=== PATIENT | male | born 1990 | race Two or more races ===

== ENCOUNTER 2018-05-10 11:23 | Emergency (ER) | payer BC, OTHER ==
[~2018-05-10] VITALS: Ht 193 cm; Wt 181.4 kg
[2018-05-10 12:25] VITALS: BP 137/77
== END 2018-05-10 12:50 | disposition home or self-care (01) ==
LOC: ER 11:30
DX: F41.8 Other specified anxiety disorders (principal)
CPT/HCPCS: 93005

== ENCOUNTER → 2018-07-23 | Emergency (ER) | payer BC | END | disposition left against medical advice (07) | LOC: ER 21:09 | DX: R13.10 Dysphagia, unspecified (principal); Z53.21 Procedure and treatment not carried out due to patient leaving prior to being seen by health care provider ==

== ENCOUNTER 2023-07-23 08:34 | Emergency (ER) | payer BC, OTHER ==
[~2023-07-23] VITALS: Ht 190.5 cm; Wt 211.0 kg
[2023-07-23 09:15] LABS: Basophils # (auto) 0.1 10 ^3/uL (0-0.2); Basophils % (auto) 1.4 % (0.0-2.0); Eosinophils # (auto) 0.2 10 ^3/uL (0-0.8); Eosinophils % (auto) 2.9 % (0.0-7.0); Hematocrit 42.4 % (41.0-53.0); Hemoglobin 14.2 g/dL (13.5-17.5); Lymphocytes # (auto) 2.4 10 ^3/uL (0.4-5.4); Lymphocytes % (auto) 27.9 % (10.0-50.0); Mean Corpuscular Hemoglobin 29.5 pg (28.0-32.0); Mean Corpuscular Hgb Conc. 33.5 g/dL (32.0-36.0); Monocytes # (auto) 0.6 10 ^3/uL (0-1.3); Monocytes % (auto) 6.9 % (0.0-12.0); Neutrophils # (auto) 5.2 10 ^3/uL (1.6-8.6); Neutrophils % (auto) 60.9 % (37.0-80.0); Nucleated Red Blood Cells % 0.1 %; Red Blood Cells 4.81 10^6/uL (4.5-5.90); White Blood Cell 8.6 10^3/uL (4.4-10.8)
[2023-07-23 09:25] LABS: Urine Bacteria None Seen /hpf (None Seen)
[2023-07-23 09:37] LABS: Alanine Aminotransferase 142 U/L (7-40); Albumin 4.4 g/dL (3.2-4.8); Alkaline Phosphatase 68 U/L (46-116); Anion Gap 9 (5-15); Aspartate Aminotransferase 53 U/L (13-40); Blood Urea Nitrogen 9 mg/dL (9-23); Calcium 8.9 mg/dL (8.5-10.1); Carbon Dioxide 21 mmol/L (20-30); Chloride 108 mmol/L (98-107); Glucose 112 mg/dL (74-106); Potassium 3.7 mmol/L (3.5-5.1); Sodium 138 mmol/L (136-145)
[2023-07-23 09:38] LABS: Urine Blood Negative /uL (Negative); Urine Clarity Clear (Clear); Urine Color Light-Yellow (Yellow); Urine Protein, UAD Negative (Negative); Urine Specific Gravity 1.016 (1.001-1.035); Urine Urobilinogen Normal (Negative); Urine WBC <1 /hpf (0 - 3); Urine pH 5.5 (5.0-9.0)
[2023-07-23 09:38] LABS: Total Protein 7.2 g/dL (5.7-8.2)
[2023-07-23 10:10] LABS: Lipase 38 U/L (12-53)
[2023-07-23] MEDS: IOHEXOL 300 MG/ML 100ML BOTTLE IJ ONE (11:21)
[2023-07-23] MEDS: SODIUM CHLORIDE 0.9% 1,000 ML IV ONE (11:30)
[2023-07-23] MEDS: HYDROmorphone HCL 2 MG/ML VL/or syr IV ONE (11:30)
[2023-07-23] MEDS ORDERED: TRAM50TA2 PO (17:48)
[2023-07-23] MEDS ORDERED: DOXY100C PO (17:48)
[2023-07-23] MEDS ORDERED: METO-281 PO (17:48)
[2023-07-23 19:30] VITALS: BP 135/78; PULSE 75; RESP 18; TEMP 98.3; O2SAT 96
[2023-07-23] MEDS: METOCLOPRAMIDE HCL 5MG/ml INJ 2ml VIAL IV ONE (19:34)
[2023-07-23] MEDS: SODIUM CHLORIDE 0.9% 500 ML IVB ONE (19:35)
== END 2023-07-23 19:35 | disposition home or self-care (01) ==
LOC: ER 08:34
DX: R59.0 Localized enlarged lymph nodes (principal); R10.12 Left upper quadrant pain; R10.32 Left lower quadrant pain; I10 Essential (primary) hypertension; E66.01 Morbid (severe) obesity due to excess calories; R07.89 Other chest pain; Z68.43 Body mass index [BMI] 50.0-59.9, adult; Z79.2 Long term (current) use of antibiotics; Z79.899 Other long term (current) drug therapy
CPT/HCPCS: 36415; 71046; 74177; 80053; 81001; 83690; 83735; 85025; 96374; 99285; J2765; Q9967